=== PATIENT | male | born 1935 | race African-American/Black ===

== ENCOUNTER 2018-03-09 07:05 | Inpatient (IN) ==
[2018-03-05 13:02] LABS: Calcium 9.1 MG/DL (8.5-10.1); Osmolality,Calculated 273.1 MOS/KG (273-304); Potassium 5.2 MMOL/L (3.5-5.1)
[~2018-03-09 07:05] MED LIST: ceFAZolin 1,000 MG in SYRINGE 1 EACH IV ONE
[2018-03-09] MEDS: LACTATED RINGERS 1,000 ML IV SCH ×4 (07:50→19:07)
[2018-03-09] MEDS ORDERED: ALBUTEROL/IPRATROPIUM 3 ML NEB RESP TX STA (07:52)
[2018-03-09] MEDS ORDERED: THROMBIN TOPICAL (RECOMBINANT) 5,000 UNIT VIAL TOP ONE (08:03)
[2018-03-09] MEDS ORDERED: LIDOCAINE 1% 20 ML VIAL ONE (08:03)
[2018-03-09] MEDS ORDERED: BUPIVACAINE 0.5% 50 ML VIAL ONE (08:03)
[2018-03-09] MEDS ORDERED: HEPARIN 5,000 UNIT/1 ML VIAL ONE (08:03)
[2018-03-09] MEDS ORDERED: VANCOMYCIN 500 MG VIAL ONE (08:03)
[2018-03-09] MEDS ORDERED: ceFAZolin 1,000 MG VIAL ONE (08:06)
[2018-03-09] MEDS ORDERED: LIDOCAINE 2% TOP JELLY 20 ML VIAL INTRAURETH ONE (08:50)
[2018-03-09] MEDS ORDERED: TISSUE ADHESIVE 1 EACH APPLICATOR TOP ONE (09:47)
[2018-03-09] MEDS ORDERED: HYDROmorphone 2 MG/1 ML VIAL IV PRN (10:22)
[2018-03-09] MEDS ORDERED: ALBUTEROL 2.5 MG/3 ML NEB RESP TX PRN (10:25)
[2018-03-09] MEDS ORDERED: fentaNYL 100 MCG/2 ML VIAL ONE (10:34)
[2018-03-09] MEDS ORDERED: PROPOFOL 200 MG/20 ML VIAL IV ONE (10:34)
[2018-03-09] MEDS ORDERED: HEPARIN 10,000 UNIT/10 ML VIAL ONE (10:34)
[2018-03-09] MEDS ORDERED: SEVOFLURANE 1 UNIT/15 MINUTE INH ONE (10:34)
[2018-03-09] MEDS ORDERED: PHENYLEPHRINE DRIP 20 MG/250 ML PREMIX IV ONE (10:34)
[2018-03-09] MEDS ORDERED: PHENYLEPHRINE 1 MG/10 ML SYRINGE IV ONE (10:35)
[2018-03-09] MEDS ORDERED: PROTAMINE SULFATE 50 MG/5 ML VIAL IV ONE (10:35)
[2018-03-09] MEDS ORDERED: ePHEDrine 50 MG/ML AMP ONE (10:35)
[2018-03-09] MEDS ORDERED: INFLUENZA VIRUS VACCINE 0.5 ML SYRINGE IM ONE (11:38)
[2018-03-09] MEDS: NICOTINE 21 MG/24 HR PATCH TRANSDERM SCH (21:39)
[2018-03-10] MEDS: LACTATED RINGERS 1,000 ML IV SCH ×2 (01:26→10:17)
[2018-03-10 04:40] LABS: Hematocrit 29.6 VOL% (42.0-52.0); Hemoglobin 9.4 GM/DL (14.0-18.0)
[2018-03-10 04:49] LABS: Calcium 8.5 MG/DL (8.5-10.1); Osmolality,Calculated 271.2 MOS/KG (273-304); Potassium 4.4 MMOL/L (3.5-5.1)
[2018-03-10] MEDS ORDERED: LOSARTAN 50 MG TABLET PO SCH (09:00)
[2018-03-10] MEDS ORDERED: ASPIRIN EC 81 MG TABLET PO SCH (09:00)
[2018-03-10] MEDS ORDERED: ASPIRIN CHEW 81 MG TABLET PO SCH (09:00)
[2018-03-10] MEDS ORDERED: ROSUVASTATIN 20 MG TABLET PO SCH (09:00)
[2018-03-10] MEDS ORDERED: CLOPIDOGREL 75 MG TABLET PO SCH (09:00)
[2018-03-10] MEDS ORDERED: TRIAMTERENE/HCTZ 37.5-25 MG TABLET PO SCH (09:00)
[2018-03-10 12:02] VITALS: BP 126/79
[2018-03-10] MEDS: NICOTINE 21 MG/24 HR PATCH TRANSDERM SCH (12:59)
== END 2018-03-10 12:52 | disposition home or self-care (01) | DRG 272 ==
LOC: N.SDSINP 07:05 → N.3E 10:30
PROVIDERS: ADMIT Surgery; ATTEND Surgery